=== PATIENT | female | born 1950 | race Caucasian/White ===

== ENCOUNTER 2018-03-09 23:13 | Inpatient (IN) | payer MEDICARE, OTHER ==
[~2018-03-09] VITALS: Ht 157.5 cm; Wt 83.5 kg
[2018-03-09] MEDS ORDERED: ONDANSETRON 4 MG/2 ML VIAL IV ONE (23:30)
[2018-03-09] MEDS ORDERED: IV NORMAL SALINE 1000 ML BAG IV ONE (23:30)
--- NOTE | 2018-03-09 23:30 | NUR ---
DR. MUNGUIA AT BEDSIDE FOR MSE.
[2018-03-09] MEDS ORDERED: GLIP1TAB4 PO (23:31)
[2018-03-09] MEDS ORDERED: ATOR10TA PO (23:31)
[2018-03-09] MEDS ORDERED: CARV25TA2 PO (23:31)
[2018-03-09] MEDS ORDERED: [UNRECOGNIZED DRUG - CODE] PO (23:31)
[2018-03-09 23:34] LABS: BASOPHILS % (AUTO) 0.3 % (0.0-2.0); EOSINOPHILS # (AUTO) 0.1 K/uL (0.0-0.7); EOSINOPHILS % (AUTO) 0.6 % (0.0-7.0); HEMATOCRIT 39.6 % (31.2-41.9); HEMOGLOBIN 13.2 g/dL (10.9-14.3); LYMPHOCYTES # (AUTO) 1.6 K/uL (20.0-40.0); MEAN CORPUSCULAR HGB CONC 33 g/dL (32.3-35.6); MEAN CORPUSCULAR VOLUME 86.7 fL (75.5-95.3); MONOCYTES # (AUTO) 0.8 K/uL (2.0-10.0); MONOCYTES % (AUTO) 6.9 % (0.0-11.0); NEUTROPHILS # (AUTO) 9.5 K/uL (1.8-8.9); NEUTROPHILS % (AUTO) 79.2 % (38.5-71.5); PLATELET COUNT (AUTO) 216 K/uL (179-408); RED BLOOD CELL COUNT(AUTO) 4.57 MIL/uL (3.63-4.92)
[2018-03-09] MEDS ORDERED: ONDANSETRON 4 MG/2 ML VIAL ONE (23:35)
--- NOTE | 2018-03-09 23:36 | NUR ---
BIB [facility] FROM HOME FOR C/O VOMITING AND WEAKNESS AND ABDOMINAL PAIN. RECENT TRAVEL TO [place] WHERE SYMTPOMS STARTED PER DAUGHTER.
[2018-03-10] MEDS ORDERED: IOHEXOL 300MG/ML 100 ML INFUS..BTL ONE (00:41)
[2018-03-10] MEDS ORDERED: SWABABLE VALVE TRANSFER SET EA MC ONE (00:41)
[2018-03-10] MEDS ORDERED: IV NORMAL SALINE 250 ML IV ONE (00:41)
[2018-03-10 00:49] LABS: BILIRUBIN,DIRECT 0.1 mg/dL (0.0-0.2); BILIRUBIN,TOTAL 0.8 mg/dL (0.2-1.0); CREATININE 0.9 mg/dL (0.6-1.3); POTASSIUM 4.1 mmol/L (3.5-5.1); TOTAL PROTEIN, SERUM 7.5 g/dL (6.4-8.2)
[2018-03-10] MEDS ORDERED: IV NORMAL SALINE 1000 ML BAG IV ONE (01:45)
[2018-03-10] MEDS ORDERED: ONDANSETRON IV *ER 4 MG/2 ML VIAL IV ONE (01:45)
[2018-03-10] MEDS ORDERED: ONDANSETRON 4 MG/2 ML VIAL ONE (02:04)
--- NOTE | 2018-03-10 02:40 | NUR ---
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
--- NOTE | 2018-03-10 03:17 | NUR ---
NO RETURN CALL FROM MINERVA CASTANEDA RECEIVED, EPIC PAGED.
--- NOTE | 2018-03-10 03:44 | NUR ---
Pt. admitted to [facility] , under care of MINERVA CASTANEDA SERVICE OBSERVER [employer] completed.
[2018-03-10] MEDS ORDERED: HYDROCODONE/APAP 5-325MG TABLET PO PRN (03:45)
[2018-03-10] MEDS ORDERED: IV LACTATED RINGERS SOLUTION 1,000 ML IV PRN (03:45)
[2018-03-10] MEDS ORDERED: Z GUARD REMEDY PASTE 57 GM TUBE TOP PRN (03:45)
[2018-03-10] MEDS ORDERED: ONDANSETRON 4 MG/2 ML VIAL IV PRN (03:45)
[2018-03-10] MEDS ORDERED: MORPHINE SULFATE 2 MG/1 ML DISP.SYRIN IV PRN (03:45)
--- NOTE | 2018-03-10 03:55 | NUR ---
RECEIVED REPORT FROM PAUL GUZMAN, IN ER. PT ARRIVED ON MED SURG FLOOR AT 0355 VIA GURNEY. PT SELF-AMBULATED TO BED. DENIES C/P, SOB, N/V. PT C/O PAIN 4/10 IN ABDOMEN, WILL MANAGE WITH ORDERED ANALGESIC. PT HAS AN EXISTING 20 G IV ACCESS IN RIGHT HAND, BUT STATES SHE'S HAD A LUMPECTOMY ON THE R BREAST. IV ACCESS IN R HAND REMOVED, NEW IV ACCESS ESTABLISHED IN L FOREARM 20 G. WILL REVIEW AND FOLLOW TREATMENT PLAN ORDERED BY .
[2018-03-10 04:00] VITALS: BP 139/78
[2018-03-10] MEDS ORDERED: CEFAZOLIN 2 G in IV DEXTROSE 5% 100 ML IV SCH (04:00)
[2018-03-10] MEDS: ACETAMINOPHEN 650 MG SUPP.RECT RC PRN ×2 (04:50→05:00)
[2018-03-10] MEDS ORDERED: KETOROLAC TROMETHAMINE 15 MG INJ IVP PRN (05:00)
[2018-03-10] MEDS ORDERED: METRONIDAZOLE 500 MG/NS 100 ML PIGGYBACK IV ONE (05:00)
--- NOTE | 2018-03-10 05:00 | NUR ---
Patient c/o abdominal pain 4/10 level of pain. NPO status, tried to give Tylenol 650 mg supp but patient refused any suppository meds. Tylenol supp wasted.
[2018-03-10 05:25] LABS: MAGNESIUM 1.6 mg/dL (1.8-2.4); PHOSPHOROUS 2.8 mg/dL (2.5-4.9)
--- NOTE | 2018-03-10 05:30 | NUR ---
NG TUBE INSERTED. 28 CM INSERTED, SECURED WITH TAPE. PT TOLERATING NG TUBE WITH INTERMITTENT SUCTION WELL.
--- NOTE | 2018-03-10 05:52 | NUR ---
CLARIFIED ORDER WITH BRENDON CASTANEDA, RE ORDER FOR ANCEF Q4. 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 CHLOE, PHARMACIST, NOTIFIED AND ORDER REMAINS PENDING UNTIL FURTHER NOTICE.
[2018-03-10] MEDS ORDERED: METRONIDAZOLE 500 MG/NS 100ML 100 ML IV ONE (06:32)
--- NOTE | 2018-03-10 07:30 | NUR ---
AWAKE ALERT COOPERATE WELL NPO FOR NOW NGT INPLACE WITH INT LOW SUCTION DRAINAGE MOD AMT OF GREENISH NO N/V OR PAIN AT THIS TIME RESTING WITH CALL LIGHT IN REACH AND CONT IVF
--- NOTE | 2018-03-10 08:00 | NUR ---
NGT ADV 12 CMS X RAY RECOMMEND AND SUCTION WORKING WELL MOD AMT GREENISH OUT
--- NOTE | 2018-03-10 10:30 | NUR ---
BALJIT RONDON SEEN PATIENT AND LAB RESULT AND ORDER IN CHART MG IVPB GIVEN ORDER
[2018-03-10] MEDS: MAGNESIUM SULFATE/D5W 100 ML IV SCH ×2 (10:49→11:39)
[2018-03-10 11:14] LABS: EOSINOPHILS % (AUTO) 0.1 % (0.0-7.0); LYMPHOCYTES # (AUTO) 1.5 K/uL (20.0-40.0); MEAN CORPUSCULAR HGB CONC 33 g/dL (32.3-35.6); MONOCYTES # (AUTO) 0.7 K/uL (2.0-10.0); NEUTROPHILS % (AUTO) 68.8 % (38.5-71.5); PLATELET COUNT (AUTO) 184 K/uL (179-408)
[2018-03-10 11:26] LABS: BASOPHILS % (AUTO) 0.5 % (0.0-2.0); LYMPHOCYTES % (AUTO) 20.9 % (20.5-51.5); MEAN CORPUSCULAR HEMOGLOBIN 29.1 uug (24.7-32.8); MEAN CORPUSCULAR VOLUME 87.6 fL (75.5-95.3); MONOCYTES % (AUTO) 9.7 % (0.0-11.0); NEUTROPHILS # (AUTO) 4.8 K/uL (1.8-8.9); RED BLOOD CELL COUNT(AUTO) 3.94 MIL/uL (3.63-4.92)
[2018-03-10 11:28] LABS: HEMATOCRIT 34.5 % (31.2-41.9); HEMOGLOBIN 11.4 g/dL (10.9-14.3)
[2018-03-10 11:33] LABS: BILIRUBIN,TOTAL 0.5 mg/dL (0.2-1.0); CREATININE 0.8 mg/dL (0.6-1.3); POTASSIUM 3.7 mmol/L (3.5-5.1); TOTAL PROTEIN, SERUM 6.6 g/dL (6.4-8.2)
[2018-03-10 11:40] VITALS: BP 145/71
[2018-03-10 12:04] LABS: THYROID STIMULATING HORMONE 0.334 mIU/mL (0.358-3.740)
[2018-03-10] MEDS: PANTOPRAZOLE SODIUM 40 MG VIAL IV SCH (14:13)
--- NOTE | 2018-03-10 15:00 | NUR ---
US DEPT WAS CALL AND MESSAGE LEFT REGARDING NO ONE DO US OF ABD YET
[2018-03-10] MEDS ORDERED: DEXTROSE 50% 50 ML DISP.SYRIN IV PRN (15:15)
[2018-03-10 15:26] VITALS: BP 120/76
[2018-03-10] MEDS: POTASSIUM CHLORIDE 20 MEQ in IV D5/ 0.9% NACL 1,000 ML IV PRN (15:26)
[2018-03-10] MEDS: CEFAZOLIN 1 G in PREMIXED 1 EACH IV SCH ×2 (15:26→21:03)
--- NOTE | 2018-03-10 16:45 | NUR ---
X RAY /US DEPT WAS CALL AGAIN ,US TECH CALL BACK STATE WILL DO IT TOMORROW AM
--- NOTE | 2018-03-10 17:30 | NUR ---
STABLE HEMODYNAMIC STATUS NO ACUTE DISTRESS PAIN AND N/V UNDER CONTROL CONTINUE IVF AND KEEP NPO WAITING FOR Joan CASTLE TO SEE HER TODAY
[2018-03-10] MEDS: BLOOD SUGAR DIAGNOSTIC 1 EACH STRIP VI SCH (17:52)
[2018-03-10] MEDS: INSULIN REGULAR, HUMAN 300 UNIT/3 ML VIAL SQ PRN (17:55)
--- NOTE | 2018-03-10 18:15 | NUR ---
DR FATIMAM SEEN PATIENT AND PT CONDITION INFORM NEW ORDER IN CHART TO GIVE FLEET ENEMA TODAY X1
[2018-03-10] MEDS ORDERED: FLEET ENEMA 133 ML BOTTLE RC ONE (18:29)
--- NOTE | 2018-03-10 18:50 | NUR ---
fleet enema x1 given as order
--- NOTE | 2018-03-10 19:50 | NUR ---
PATIENT IS AWAKE IN BED, AAOX4. DENIES PAIN OR ANY DISTRESS ON ASSESSMENT. NO N/V AT THIS TIME. BOWEL SOUNDS HYPOACTIVE X4 QUADS. NG TUBE DRAINING INTERMITTENTLY GREENISH DISCHARGE. HOB AT 45 DEGREES, SAFETY AND ASPIRATION PRECAUTIONS IN PLACE. WILL CONTINUE TO MONITOR PATIENT.
[2018-03-10 20:00] VITALS: BP 119/63
[2018-03-11] MEDS: BLOOD SUGAR DIAGNOSTIC 1 EACH STRIP VI SCH ×4 (00:27→17:36)
[2018-03-11] MEDS: INSULIN REGULAR, HUMAN 300 UNIT/3 ML VIAL SQ PRN ×3 (00:30→12:33)
[2018-03-11 04:00] VITALS: BP 131/74
[2018-03-11] MEDS: PANTOPRAZOLE SODIUM 40 MG VIAL IV SCH (06:11)
[2018-03-11] MEDS: CEFAZOLIN 1 G in PREMIXED 1 EACH IV SCH ×3 (06:11→21:23)
--- NOTE | 2018-03-11 06:38 | NUR ---
PATIENT SLEPT WELL ON THIS SHIFT. NO C/O PAIN OR ACUTE DISTRESS ON THIS SHIFT. NG PATENT AND DRAINING BROWNISH DISCHARGE. NO C/O OF NAUSEA ON THIS SHIFT. PATIENT IN STABLE CONDITION, NO FEVER. NO FURTHER CHANGES IN STATUS
[2018-03-11 06:53] LABS: BASOPHILS % (AUTO) 0.4 % (0.0-2.0); EOSINOPHILS # (AUTO) 0.1 K/uL (0.0-0.7); EOSINOPHILS % (AUTO) 1.2 % (0.0-7.0); HEMATOCRIT 33.2 % (31.2-41.9); LYMPHOCYTES # (AUTO) 1.6 K/uL (20.0-40.0); MEAN CORPUSCULAR HEMOGLOBIN 29.1 uug (24.7-32.8); MEAN CORPUSCULAR HGB CONC 33 g/dL (32.3-35.6); MEAN CORPUSCULAR VOLUME 88.1 fL (75.5-95.3); MONOCYTES # (AUTO) 0.7 K/uL (2.0-10.0); NEUTROPHILS # (AUTO) 3.3 K/uL (1.8-8.9); NEUTROPHILS % (AUTO) 58.4 % (38.5-71.5); PLATELET COUNT (AUTO) 165 K/uL (179-408); RED BLOOD CELL COUNT(AUTO) 3.77 MIL/uL (3.63-4.92); WHITE BLOOD COUNT (AUTO) 5.6 K/uL (3.8-11.8)
[2018-03-11 07:06] LABS: CREATININE 0.7 mg/dL (0.6-1.3); PHOSPHOROUS 2.4 mg/dL (2.5-4.9); POTASSIUM 3.6 mmol/L (3.5-5.1)
--- NOTE | 2018-03-11 08:00 | NUR ---
AWAKE ALERT COOPERATE WELL NO PAIN OR N/V CONTINUE IVF AND KEEP NPO NGT CONNECT TO INT WALL SUCTION WORKING WELL MOD AMT OF LIGHT GREEN/BROWN GASTRIC CONTENT RESTING QUIET IN BED WITH CALL LIGHT IN REACH
[2018-03-11] MEDS: POTASSIUM CHLORIDE 20 MEQ in IV D5/ 0.9% NACL 1,000 ML IV PRN (08:27)
[2018-03-11] MEDS ORDERED: POTASSIUM PHOSPHATE MM 7.5 MMOL in IV DEXTROSE 5% 100 ML IV ONE (11:00)
--- NOTE | 2018-03-11 11:00 | NUR ---
Abhishek RONDON SEEN PATIENT AND LAB RESULT IVPB OF KPO4 GIVEN ORDER
[2018-03-11 11:05] VITALS: BP 103/69
--- NOTE | 2018-03-11 12:00 | NUR ---
OOB AMB IN THE [address] WAY DOING WELL AND UP IN CHAIR NGT WAS CLAMP NO N/V OR PAIN CONTINUE IVF
[2018-03-11 15:31] VITALS: BP 153/75
--- NOTE | 2018-03-11 18:00 | NUR ---
STABLE CONDITION NO PAIN OR N/V AND HAVING BM AND PASSING GAS TODAY NGT CONT TO INT LOW SUCTION SMALL AMT OF LIGHT BROWN GASTRIC CONTENTS SAFETY MEASURE PROVIDE AND CALL LIGHT IN REACH
--- NOTE | 2018-03-11 19:30 | NUR ---
RECEIVED PATIENT IN BED, WITH NGT STILL, COMPLAIN OF DISCOMFORT DUE TO NGT, AWAITING FOR DR. FATIMA TO COME IN. KEPT CLEAN AND DRY.
[2018-03-11 20:00] VITALS: BP 125/71
--- NOTE | 2018-03-11 20:55 | NUR ---
CALLED DR. FATIMA, AND LEFT A MESSAGE. MD RETURNED THE CALL AND NOTIFY MD THAT PATIENT PASSING GAS NOW, AND HAD 2 BOWEL MOVEMENT, MD ORDER TO D/C NGT, START CLEAR LIGUID DIET. PATIENT AND DAUGHTER AWARE.
[2018-03-12] MEDS: BLOOD SUGAR DIAGNOSTIC 1 EACH STRIP VI SCH ×5 (00:53→20:27)
[2018-03-12] MEDS: INSULIN REGULAR, HUMAN 300 UNIT/3 ML VIAL SQ PRN ×4 (01:01→20:40)
[2018-03-12 04:00] VITALS: BP 134/61
[2018-03-12] MEDS: POTASSIUM CHLORIDE 20 MEQ in IV D5/ 0.9% NACL 1,000 ML IV PRN ×2 (05:44→21:43)
[2018-03-12] MEDS: CEFAZOLIN 1 G in PREMIXED 1 EACH IV SCH ×3 (05:44→21:42)
[2018-03-12] MEDS: PANTOPRAZOLE SODIUM 40 MG VIAL IV SCH (06:07)
[2018-03-12 06:28] LABS: BASOPHILS % (AUTO) 0.4 % (0.0-2.0); EOSINOPHILS # (AUTO) 0.1 K/uL (0.0-0.7); EOSINOPHILS % (AUTO) 2.3 % (0.0-7.0); HEMATOCRIT 31.8 % (31.2-41.9); HEMOGLOBIN 10.8 g/dL (10.9-14.3); LYMPHOCYTES # (AUTO) 1.5 K/uL (20.0-40.0); LYMPHOCYTES % (AUTO) 25.7 % (20.5-51.5); MEAN CORPUSCULAR HEMOGLOBIN 30.1 uug (24.7-32.8); MEAN CORPUSCULAR HGB CONC 34 g/dL (32.3-35.6); MEAN CORPUSCULAR VOLUME 88.2 fL (75.5-95.3); MONOCYTES # (AUTO) 0.5 K/uL (2.0-10.0); MONOCYTES % (AUTO) 8.5 % (0.0-11.0); NEUTROPHILS # (AUTO) 3.7 K/uL (1.8-8.9); NEUTROPHILS % (AUTO) 63.1 % (38.5-71.5); PLATELET COUNT (AUTO) 156 K/uL (179-408); RED BLOOD CELL COUNT(AUTO) 3.61 MIL/uL (3.63-4.92); WHITE BLOOD COUNT (AUTO) 5.9 K/uL (3.8-11.8)
[2018-03-12 06:47] LABS: BILIRUBIN,TOTAL 0.4 mg/dL (0.2-1.0); CREATININE 0.6 mg/dL (0.6-1.3); MAGNESIUM 1.8 mg/dL (1.8-2.4); PHOSPHOROUS 2.4 mg/dL (2.5-4.9); POTASSIUM 3.7 mmol/L (3.5-5.1)
--- NOTE | 2018-03-12 06:52 | NUR ---
PATIENT SLEPT MOST OF THE NIGHT, PATIENT HAS NO FURTHER COMPLAIN OF PAIN ON THROAT NOR NOSTRIL AT THIS TIME. TOLERATE CLEAR LIQUID DIET. CALL LIGHT WITHIN REACH.
--- NOTE | 2018-03-12 07:05 | NUR ---
Received patient in bed, awake, alert and oriented x4, in no acute distress. IV site on LFA intact, IV fluids running at 75cc/hr, able to tolerate well. Denies chest pain or SOB at this time. Denies N/V/D. Will continue to monitor
[2018-03-12 11:21] LABS: IRON, SERUM 28 ug/dL (50-175)
[2018-03-12 11:31] VITALS: BP 124/70
[2018-03-12] MEDS ORDERED: POTASSIUM PHOSPHATE MM 7.5 MMOL in IV DEXTROSE 5% 100 ML IV ONE (11:41)
[2018-03-12 15:03] VITALS: BP 138/73
[2018-03-12] MEDS ORDERED: NEUTRA PHOS PACKET PO ONE (16:15)
--- NOTE | 2018-03-12 17:22 | NUR ---
End of shift note: Patient is alert and oriented x4, in no acute distress. Denies chest pain or SOB. IV site on LFA intact, IV fluids running at 75cc/hr, able to tolerate well. Denies N/V/D. Clear liquid diet able to tolerate well. No s/s of hypoglycemia noted. All needs attended and met. Will continue to monitor
[2018-03-12] MEDS ORDERED: BLOOD SUGAR DIAGNOSTIC 1 EACH STRIP VI SCH (17:30)
[2018-03-12 18:52] LABS: *OCCULT BLOOD STOOL NEGATIVE (NEGATIVE)
--- NOTE | 2018-03-12 19:20 | NUR ---
PATIENT AWAKE, NO COMPLAIN OF PAIN, COMPLAIN OF ABDOMINAL GAS, ENCOURAGE PATIENT TO AMBULATE IN HALLWAYS TO HELP REMOVED EXTRA ABDOMINAL GAS, WITH HELP. CALL LIGHT WITHIN REACH.
[2018-03-12 20:31] VITALS: BP 127/65
--- NOTE | 2018-03-12 20:40 | NUR ---
DR. FATIMA CALLED, AND ORDER TO UPGRADE DIET TO SOFT DIET, AND PATIENT MAY DISCHARGE TOMORROW. NOTIFY THE PATIENT.
--- NOTE | 2018-03-12 23:52 | NUR ---
Notify Dr. barrios that patient requesting to lower down her iv hydration, okeyed the request.
[2018-03-13] MEDS ORDERED: IV DEXTROSE 5%-0.9%NS+20MeqKCL 1,000 ML IV ONE
[2018-03-13 04:45] VITALS: BP 121/45
[2018-03-13] MEDS: CEFAZOLIN 1 G in PREMIXED 1 EACH IV SCH ×3 (05:25→21:14)
[2018-03-13] MEDS: BLOOD SUGAR DIAGNOSTIC 1 EACH STRIP VI SCH ×4 (05:41→20:11)
[2018-03-13] MEDS: PANTOPRAZOLE SODIUM 40 MG TABLET.DR PO SCH (05:42)
--- NOTE | 2018-03-13 06:04 | NUR ---
PATIENT SLEPT MOST OF THE NIGHT, NO FURTHER COMPLAIN OF ABDOMINAL GAS PAIN, NO SOB NO CHEST CONGESTION NOTED, PATIENT VOIDING AND PASSING GAS AT THIS TIME. CALL LIGHT WITHIN REACH.
[2018-03-13 06:37] LABS: BASOPHILS % (AUTO) 0.2 % (0.0-2.0); EOSINOPHILS # (AUTO) 0.1 K/uL (0.0-0.7); EOSINOPHILS % (AUTO) 2.5 % (0.0-7.0); HEMATOCRIT 31.4 % (31.2-41.9); HEMOGLOBIN 10.6 g/dL (10.9-14.3); LYMPHOCYTES # (AUTO) 1.5 K/uL (20.0-40.0); LYMPHOCYTES % (AUTO) 28.9 % (20.5-51.5); MEAN CORPUSCULAR HEMOGLOBIN 29.9 uug (24.7-32.8); MEAN CORPUSCULAR HGB CONC 34 g/dL (32.3-35.6); MEAN CORPUSCULAR VOLUME 88.3 fL (75.5-95.3); MONOCYTES # (AUTO) 0.4 K/uL (2.0-10.0); MONOCYTES % (AUTO) 8.7 % (0.0-11.0); NEUTROPHILS # (AUTO) 3.1 K/uL (1.8-8.9); NEUTROPHILS % (AUTO) 59.7 % (38.5-71.5); PLATELET COUNT (AUTO) 151 K/uL (179-408); RED BLOOD CELL COUNT(AUTO) 3.56 MIL/uL (3.63-4.92); WHITE BLOOD COUNT (AUTO) 5.1 K/uL (3.8-11.8)
[2018-03-13 06:58] LABS: BILIRUBIN,TOTAL 0.5 mg/dL (0.2-1.0); CREATININE 0.7 mg/dL (0.6-1.3); MAGNESIUM 1.7 mg/dL (1.8-2.4); TOTAL PROTEIN, SERUM 6.2 g/dL (6.4-8.2)
[2018-03-13] MEDS: FERROUS SULFATE 325 MG TABEC PO SCH ×2 (08:27→08:32)
[2018-03-13] MEDS: INSULIN REGULAR, HUMAN 300 UNIT/3 ML VIAL SQ PRN ×4 (08:29→20:20)
--- NOTE | 2018-03-13 08:35 | NUR ---
Pt refused Iron, pt stated that she is scared to take Iron. Pt stated that after taking Iron once it made both her hands and arms swollen and itchy. Pt stated she forgot to state she was allergic to Iron.
[2018-03-13] MEDS ORDERED: FERROUS SULFATE 325 MG TABEC PO SCH (09:00)
[2018-03-13] MEDS: MAGNESIUM SULFATE/D5W 100 ML IV SCH ×2 (11:00→11:55)
[2018-03-13 11:30] VITALS: BP 144/79
--- NOTE | 2018-03-13 11:45 | NUR ---
Pt refused her Mag infusion. Pt stated her arm was hurting near the IV site
[2018-03-13] MEDS ORDERED: MAGNESIUM OXIDE 400 MG TABLET PO ONE (13:30)
--- NOTE | 2018-03-13 14:00 | NUR ---
New IV started on her left hand 22 g. Tried two times, pt able to tolerated procedure
[2018-03-13 16:00] VITALS: BP 132/65
[2018-03-13] MEDS ORDERED: [UNRECOGNIZED DRUG - OTHER] PO SCH (17:00)
[2018-03-13] MEDS ORDERED: GLIPIZIDE PO SCH (17:00)
[2018-03-13] MEDS ORDERED: METFORMIN HCL PO SCH (17:00)
[2018-03-13] MEDS: METFORMIN HCL 500 MG TABLET PO SCH (17:42)
[2018-03-13] MEDS: CARVEDILOL 25 MG TABLET PO SCH (17:43)
--- NOTE | 2018-03-13 17:49 | NUR ---
Pt refuse 2 units of Reg Humulin insulin, BS Accu Ck was 147. Pt stated she just wanted to take metformin
--- NOTE | 2018-03-13 19:12 | NUR ---
Pt has been semi-complaint with meds. Pt is alert and oriented time 4, able to verbalize her needs. No immediate s/sx of pain, distress or discomfort
--- NOTE | 2018-03-13 19:15 | NUR ---
RECEIVED PT AWAKE, ALERT, ORIENTEDX4. PT SHOWS NO SIGNS OF DISTRESS. PT IV INTACT AND PATENT. CALL LIGHT WITHIN REACH. BED ALARM ON.SAFETY AND COMFORT PROVIDED. WILL CONTINUE TO MONITOR.
--- NOTE | 2018-03-13 19:20 | NUR ---
RECEIVED PT ON BED. PT AWAKE, ALERT, ORIENTEDX1. ALERT TO HER NAME.PT SEEMS RESTLESS. TURNING SIDE TO SIDE ON BED. TRYING TO GET OUT OF THE BED. CALL LIGHT WITHIN REACH. BED ALARM ON, LOW POSITION AND SIDE RAILS UPX2. WILL CONTINUE TO MONITOR. Addendum: 03/13/18 at 2027 by DENILSON SANTORO RN WRONG INPUT. WRONG PT. IT SHOULD BE FOR PT IN ROOM 214. ACCIDENTAL WRONG INPUT OF RECEIVING NOTES.
[2018-03-13 20:00] VITALS: BP 129/70
--- NOTE | 2018-03-13 20:23 | NUR ---
PT REFUSED HER 3 UNITS OF HUMULIN R.SHE SAID THAT SHE IS JUST TAKING HER METFORMIN. SHE SAID THE DOCTOR IS AWARE OF IT. IT WAS ALSO ENDORSE TO ME BY THE DAYSHIFT NURSE THAT SHE ALSO REFUSE INSULIN ON HER HER SHIFT. PT STABLE . WILL CONTINUE TO MONITOR.
[2018-03-14] MEDS: CEFAZOLIN 1 G in PREMIXED 1 EACH IV SCH (05:19)
[2018-03-14 06:04] VITALS: BP 123/68
[2018-03-14] MEDS: PANTOPRAZOLE SODIUM 40 MG TABLET.DR PO SCH (06:09)
[2018-03-14] MEDS: glipiZIDE 5 MG TABLET PO SCH ×2 (06:39→17:34)
[2018-03-14] MEDS: BLOOD SUGAR DIAGNOSTIC 1 EACH STRIP VI SCH ×4 (06:39→20:36)
--- NOTE | 2018-03-14 06:42 | NUR ---
PT SLEPT THROUGHOUT THE SHIFT. PT SHOWS NO SIGNS OF DISTRESS.PT STABLE. VITAL SIGNS WNL.PRESCRIBED MEDICATION GIVEN AND PT TOLERATED IT WELL. IV INTACT AND PATENT. SAFETY AND COMFORT PROVIDED.CALL LIGHT WITHIN REACH AND BED ALARM ON, [id number]. WILL ENDORSE ACCORDINGLY TO INCOMING NURSE FOR CONTINUITY OF CARE.
[2018-03-14] MEDS: CARVEDILOL 25 MG TABLET PO SCH ×2 (08:15→17:36)
[2018-03-14] MEDS: METFORMIN HCL 500 MG TABLET PO SCH ×2 (08:15→17:34)
[2018-03-14 11:28] LABS: BASOPHILS % (AUTO) 0.6 % (0.0-2.0); EOSINOPHILS # (AUTO) 0.2 K/uL (0.0-0.7); EOSINOPHILS % (AUTO) 2.5 % (0.0-7.0); HEMOGLOBIN 11.7 g/dL (10.9-14.3); LYMPHOCYTES # (AUTO) 1.7 K/uL (20.0-40.0); MEAN CORPUSCULAR HEMOGLOBIN 29.9 uug (24.7-32.8); MEAN CORPUSCULAR HGB CONC 34 g/dL (32.3-35.6); MEAN CORPUSCULAR VOLUME 87.3 fL (75.5-95.3); MONOCYTES # (AUTO) 0.5 K/uL (2.0-10.0); MONOCYTES % (AUTO) 7.6 % (0.0-11.0); NEUTROPHILS % (AUTO) 62.3 % (38.5-71.5); PLATELET COUNT (AUTO) 173 K/uL (179-408); WHITE BLOOD COUNT (AUTO) 6.4 K/uL (3.8-11.8)
[2018-03-14 11:35] LABS: CREATININE 0.7 mg/dL (0.6-1.3)
[2018-03-14 11:41] LABS: BILIRUBIN,TOTAL 0.4 mg/dL (0.2-1.0); MAGNESIUM 1.7 mg/dL (1.8-2.4); TOTAL PROTEIN, SERUM 6.8 g/dL (6.4-8.2)
[2018-03-14 11:52] VITALS: BP 131/74
[2018-03-14 15:09] VITALS: BP 118/53
[2018-03-14] MEDS ORDERED: MAGNESIUM SULFATE/D5W 100 ML IV SCH (15:45)
--- NOTE | 2018-03-14 17:29 | NUR ---
PATIENT REFUSED INJECTABLE SLIDING SCALE INSULIN COVERAGE FOR B/S 198. SHE SAID SHE ONLY TAKE METFORMIN.
--- NOTE | 2018-03-14 18:19 | NUR ---
ALL IV MEDICATIONS ADMINISTERED BY MARCY CASTELLANOS RN.
[2018-03-14 20:00] VITALS: BP 132/63
[2018-03-14] MEDS: INSULIN REGULAR, HUMAN 300 UNIT/3 ML VIAL SQ PRN (20:37)
[2018-03-15 05:13] VITALS: BP 141/69
[2018-03-15] MEDS: PANTOPRAZOLE SODIUM 40 MG TABLET.DR PO SCH (06:15)
--- NOTE | 2018-03-15 06:24 | NUR ---
Pt denies pain or discomfort. No bowel movement all shift. patient states shes "ready to go home and take a shower." Slept well through the night. Refused insulin sliding scale at HS and this morning. However, continued to take all other scheduled medications.
[2018-03-15] MEDS: glipiZIDE 5 MG TABLET PO SCH (06:30)
[2018-03-15] MEDS: BLOOD SUGAR DIAGNOSTIC 1 EACH STRIP VI SCH ×2 (06:30→12:29)
[2018-03-15 06:31] LABS: BASOPHILS % (AUTO) 0.5 % (0.0-2.0); EOSINOPHILS # (AUTO) 0.2 K/uL (0.0-0.7); EOSINOPHILS % (AUTO) 2.9 % (0.0-7.0); HEMATOCRIT 32.8 % (31.2-41.9); HEMOGLOBIN 11.2 g/dL (10.9-14.3); LYMPHOCYTES # (AUTO) 1.7 K/uL (20.0-40.0); LYMPHOCYTES % (AUTO) 24.9 % (20.5-51.5); MEAN CORPUSCULAR HEMOGLOBIN 29.9 uug (24.7-32.8); MEAN CORPUSCULAR HGB CONC 34 g/dL (32.3-35.6); MEAN CORPUSCULAR VOLUME 87.4 fL (75.5-95.3); MONOCYTES # (AUTO) 0.4 K/uL (2.0-10.0); NEUTROPHILS # (AUTO) 4.6 K/uL (1.8-8.9); NEUTROPHILS % (AUTO) 65.7 % (38.5-71.5); PLATELET COUNT (AUTO) 169 K/uL (179-408); RED BLOOD CELL COUNT(AUTO) 3.76 MIL/uL (3.63-4.92); WHITE BLOOD COUNT (AUTO) 6.9 K/uL (3.8-11.8)
[2018-03-15 06:51] LABS: BILIRUBIN,TOTAL 0.3 mg/dL (0.2-1.0); CREATININE 0.7 mg/dL (0.6-1.3); MAGNESIUM 1.8 mg/dL (1.8-2.4); PHOSPHOROUS 3.5 mg/dL (2.5-4.9); POTASSIUM 4.1 mmol/L (3.5-5.1); TOTAL PROTEIN, SERUM 6.5 g/dL (6.4-8.2)
[2018-03-15] MEDS: CARVEDILOL 25 MG TABLET PO SCH (08:14)
[2018-03-15] MEDS: METFORMIN HCL 500 MG TABLET PO SCH (08:14)
[2018-03-15] MEDS: INSULIN REGULAR, HUMAN 300 UNIT/3 ML VIAL SQ PRN ×2 (08:15→12:29)
[2018-03-15 11:45] VITALS: BP 114/66
[2018-03-15] MEDS ORDERED: PANT40TA2 PO (12:29)
--- NOTE | 2018-03-15 13:15 | NUR ---
HOME INSTRUCTIONS REVIEWED WITH PT. PHARMACY IN TO REVIEW HOME MEDS/NEW RX. IV D/C'D DVD PRINTED FOR PT. WITH RADIOLOGY TESTS. DISCHARGED TO DAUGHTER ESCORTED TO CAR BY PAUL
== END 2018-03-15 13:30 | disposition home or self-care (01) | DRG 389 ==
LOC: ER 23:15 → MED 03-10 03:46
PROVIDERS: ADMIT Hospitalist; ATTEND Internal Medicine
PROC: 0D9670Z Drainage of Stomach with Drainage Device, Via Natural or Artificial Opening (ICD-10-PCS; principal; 2018-03-10)
DX: K56.609 Unspecified intestinal obstruction, unspecified as to partial versus complete obstruction (principal); E44.0 Moderate protein-calorie malnutrition; E87.1 Hypo-osmolality and hyponatremia; J98.11 Atelectasis; Z90.49 Acquired absence of other specified parts of digestive tract; Z90.710 Acquired absence of both cervix and uterus; Z92.21 Personal history of antineoplastic chemotherapy; K76.89 Other specified diseases of liver; E83.42 Hypomagnesemia; E83.39 Other disorders of phosphorus metabolism; E83.51 Hypocalcemia; E66.9 Obesity, unspecified; Z68.33 Body mass index [BMI] 33.0-33.9, adult; Z71.3 Dietary counseling and surveillance; E11.65 Type 2 diabetes mellitus with hyperglycemia; D69.6 Thrombocytopenia, unspecified; D64.9 Anemia, unspecified; N20.0 Calculus of kidney; M19.90 Unspecified osteoarthritis, unspecified site; E05.90 Thyrotoxicosis, unspecified without thyrotoxic crisis or storm; R60.9 Edema, unspecified
CPT/HCPCS: 36415; 71045; 74018; 76705; 82378; 83550; 83605; 83690; 83735; 84100; 84443; 84481; 85025; 85730; 86850; 86900; 86901; 87040; A4663; C9113; J0690; J1815; J2405; J3475; J3480; J3490; J7040; J7042; J7050; J7060; J7120; Q9967